=== PATIENT | male | born 1995 | race Caucasian/White ===

== ENCOUNTER → 2021-05-06 14:57 | Outpatient (BNVA) | payer BC, SELFPAY | PROVIDERS: PCP Hospitalist; Visit Provider Urology ==

== ENCOUNTER → 2021-08-18 11:05 | Outpatient (BNVA) | payer BC, SELFPAY | PROVIDERS: PCP Hospitalist; Visit Provider Urology | DX: Z30.2 Encounter for sterilization (principal); F41.8 Other specified anxiety disorders | CPT/HCPCS: 55250 ==

== ENCOUNTER → 2021-10-29 09:30 | Outpatient (BNVA) | payer BC, SELFPAY | PROVIDERS: PCP Hospitalist; Visit Provider Urology ==

== ENCOUNTER 2021-11-09 08:53 | Outpatient (REF) | payer BC, SELFPAY ==
[2021-11-09 09:13] LABS: MANUAL DIFF FLAG NO
[2021-11-09 09:16] LABS: Basophils Absolute Auto 0.1 X10*3/uL (0.0-0.2); Basophils Percent Auto 1.1 % (0-2); Eosinophils Absolute Auto 0.3 X10*3/uL (0.0-0.4); Eosinophils Percent Auto 7.6 % (0-4); Hematocrit 49.4 % (42.0-52.0); Hemoglobin 15.8 g/dl (14.0-18.0); Imm Gran Abs Auto 0.01 X10*3/uL (0.00-0.03); Imm Gran Pct Auto 0.2 % (0.0-0.4); Lymphocytes Absolute Auto 1.5 X10*3/uL (1.2-4.9); Lymphocytes Percent Auto 34.4 % (20-40); Mean Corpuscular Hemoglobin 26.8 pg (27.0-33.0); Mean Corpuscular Volume 83.9 fL (80.0-98.0); Monocytes Absolute Auto 0.8 X10*3/uL (0.1-1.2); Monocytes Percent Auto 18.1 % (2-11); Neutrophils Absolute Auto 1.7 x10*3/uL (2.0-8.3); Neutrophils Percent Auto 38.6 % (45-73); Platelet Count 210 X10*3/uL (160-400); Red Blood Count 5.89 X10*6/uL (4.60-5.80); Red Cell Distribution Width 13.3 % (11.0-16.0); White Blood Count 4.5 X10*3/uL (4.8-10.8)
[2021-11-09 09:37] LABS: Alanine Aminotransferase 26 U/L (0-40); Albumin Level 4.2 g/dL (3.5-5.0); Alkaline Phosphatase 64 U/L (39-117); Anion Gap 10 (12-20); Aspartate Amino Transferase 27 U/L (5-37); Bilirubin Total 0.3 mg/dL (0.0-1.0); Blood Urea Nitrogen 19 mg/dL (9-16); Calcium 9.7 mg/dL (8.4-10.2); Carbon Dioxide 32 mmol/L (22-29); Chloride 102 mmol/L (96-108); Estimated Glomerular Filt Rate > 60; Glucose Random 98 mg/dL (60-115); Potassium 4.5 mmol/L (3.3-5.1); Sodium 139 mmol/L (135-145)
== END 2021-11-09 08:54 | disposition home or self-care (01) ==
LOC: HO.LAB 08:53
PROVIDERS: PCP Hospitalist; Visit Provider Hospitalist
DX: Z00.00 Encounter for general adult medical examination without abnormal findings (principal); L53.9 Erythematous condition, unspecified; R59.0 Localized enlarged lymph nodes
CPT/HCPCS: 36415; 80053; 85025

== ENCOUNTER 2021-11-09 14:13 | Outpatient (REF) | payer BC, SELFPAY ==
--- NOTE | ~2021-11-09 | US_ITS ---
EXAMINATION: ULTRASOUND EXTREMITY NONVASCULAR CLINICAL INFORMATION: Left axillary lymphadenopathy COMPARISON: None TECHNIQUE: Grayscale and color imaging of the left axilla and chest wall using a linear transducer FINDINGS: There are multiple left axillary lymph nodes. Largest lymph nodes measure 2.4 x 1 x 2.4 cm and 2.6 x 1.3 x 1.8 cm. Larger lymph nodes demonstrate cortical thickening and slitlike hilum. There is preserved hilar flow. There is overlying edema of the subcutaneous soft tissues. US/US extremity nonvascular aleman IMPRESSION: Multiple left axillary lymph nodes. Largest lymph nodes are slightly enlarged and demonstrates cortical thickening and slitlike hilum. Management should be determined on a clinical basis.
== END 2021-11-09 14:14 | disposition home or self-care (01) ==
LOC: HO.HMGCX 14:13
PROVIDERS: PCP Hospitalist; Visit Provider Hospitalist
DX: R59.0 Localized enlarged lymph nodes (principal)
CPT/HCPCS: 76882

== ENCOUNTER 2022-04-12 08:46 | Outpatient (REF) | payer BC, SELFPAY ==
[2022-04-12 11:18] LABS: MANUAL DIFF FLAG NO
[2022-04-12 11:37] LABS: Basophils Absolute Auto 0.1 X10*3/uL (0.0-0.2); Eosinophils Absolute Auto 0.5 X10*3/uL (0.0-0.4); Eosinophils Percent Auto 8.4 % (0-4); Hematocrit 48.4 % (42.0-52.0); Hemoglobin 15.5 g/dl (14.0-18.0); Imm Gran Abs Auto 0.01 X10*3/uL (0.00-0.03); Imm Gran Pct Auto 0.2 % (0.0-0.4); Mean Corpuscular Hemoglobin 27.1 pg (27.0-33.0); Mean Corpuscular Volume 84.6 fL (80.0-98.0); Mean Platelet Volume 10.4 fL (9.4-12.4); Monocytes Absolute Auto 0.6 X10*3/uL (0.1-1.2); Monocytes Percent Auto 10.5 % (2-11); Neutrophils Absolute Auto 2.7 x10*3/uL (2.0-8.3); Neutrophils Percent Auto 45.9 % (45-73); Platelet Count 222 X10*3/uL (160-400); Red Blood Count 5.72 X10*6/uL (4.60-5.80); Red Cell Distribution Width 13.8 % (11.0-16.0); White Blood Count 5.8 X10*3/uL (4.8-10.8)
[2022-04-12 11:59] LABS: TSH reflex Free T4 1.52 uIU/mL (0.32-4.0)
[2022-04-12 12:01] LABS: Alanine Aminotransferase 25 U/L (0-40); Albumin Level 4.4 g/dL (3.5-5.0); Alkaline Phosphatase 67 U/L (39-117); Anion Gap 11 (12-20); Aspartate Amino Transferase 32 U/L (5-37); Bilirubin Total 0.7 mg/dL (0.0-1.0); Blood Urea Nitrogen 16 mg/dL (9-16); Calcium 9.7 mg/dL (8.4-10.2); Carbon Dioxide 29 mmol/L (22-29); Chloride 102 mmol/L (96-108); Cholesterol 139 mg/dL; Estimated Glomerular Filt Rate > 60; Glucose Fasting 105 mg/dL (60-99); HDL Cholesterol 41 mg/dL; LDL Cholesterol Calculated 81 mg/dl; Potassium 4.2 mmol/L (3.3-5.1); Sodium 138 mmol/L (135-145); Total Protein 7.2 g/dL (6.5-8.0); Triglycerides 85 mg/dL
[2022-04-12 12:20] LABS: Appearance Urine CLEAR; Color Urine YELLOW; Glucose Urine UA NEG (NEG); Leukocyte Esterase Urine NEG (NEG); Nitrite Urine NEG (NEG); PH 6.5 (5.0-8.0); Urine Blood NEG (NEG); Urine Ketones NEG (NEG); Urine Protein NEG (NEG-TRACE)
[2022-04-13 07:28] LABS: HBS Num1 0.82 mIU/mL (0-7.99); HBc Num1 0.08 S/CO (0.00-0.79); HIV AB/AG Nonreactive (Nonreactive); HIV Num 1 0.19 S/CO (0.00-0.99); Hepatitis B Core Antibody Nonreactive (Nonreactive); Hepatitis B Surface Antigen Negative (Negative); ~HepC Num1 0.05 S/CO (0.00-0.79); ~Hepatitis B Surface Antibody NONREACTIVE (Nonreactive); ~Hepatitis C Antibody Nonreactive (Nonreactive)
== END 2022-04-12 08:47 | disposition home or self-care (01) ==
LOC: HO.WFDLDS 08:46
PROVIDERS: Visit Provider Hospitalist
DX: Z00.00 Encounter for general adult medical examination without abnormal findings (principal); Z11.4 Encounter for screening for human immunodeficiency virus [HIV]; Z11.3 Encounter for screening for infections with a predominantly sexual mode of transmission; G47.8 Other sleep disorders; R79.89 Other specified abnormal findings of blood chemistry; F41.8 Other specified anxiety disorders
CPT/HCPCS: 36415; 80053; 80061; 81003; 84443; 85025; 86704; 86706; 86803; 87340; 87389

== ENCOUNTER 2022-05-31 11:42 | Outpatient (REF) | payer BC, SELFPAY ==
[2022-05-31 14:27] LABS: Appearance Urine Turbid; Color Urine Yellow; Glucose Urine UA Negative (Negative); Leukocyte Esterase Urine Moderate (2+) (Negative); Nitrite Urine Negative (Negative); Urine Blood Negative (Negative); Urine Ketones Negative (Negative); Urine Protein Negative (Neg-Trace)
[2022-05-31 15:00] LABS: Bacteria Urine None Seen (None Seen); Hyaline Casts Urine 0-2 /LPF (0-2); RBC Urine 0-2 /HPF (0-2); Squamous Epithelial Cell Urine 0-2 /HPF (0-2); UACC Culture Trigger YES; WBC Urine 21-50 /HPF (0-5)
== END 2022-05-31 11:43 | disposition home or self-care (01) ==
LOC: HO.WFDLDS 11:42
PROVIDERS: Visit Provider Hospitalist
DX: R82.90 Unspecified abnormal findings in urine (principal)
CPT/HCPCS: 81001

== ENCOUNTER 2022-06-01 14:00 | Outpatient (REF) | payer BC, SELFPAY ==
[2022-06-01 14:15] LABS: Appearance Urine Clear; Color Urine Yellow; Glucose Urine UA Negative (Negative); Leukocyte Esterase Urine Moderate (2+) (Negative); Nitrite Urine Negative (Negative); Specific Gravity - Urine 1.015 (1.005-1.025); Urine Blood Negative (Negative); Urine Ketones Negative (Negative); Urine Protein Negative (Neg-Trace)
[2022-06-01 14:21] LABS: Bacteria Urine None Seen (None Seen); Hyaline Casts Urine 0-2 /LPF (0-2); RBC Urine 0-2 /HPF (0-2); Squamous Epithelial Cell Urine 0-2 /HPF (0-2); WBC Urine 21-50 /HPF (0-5)
== END 2022-06-01 14:01 | disposition home or self-care (01) ==
LOC: HO.LNP 14:00
PROVIDERS: Visit Provider Hospitalist
DX: R82.90 Unspecified abnormal findings in urine (principal)
CPT/HCPCS: 81001

== ENCOUNTER 2022-06-09 13:11 | Outpatient (REF) | payer BC, SELFPAY ==
[2022-06-09 13:42] LABS: Appearance Urine Clear; Color Urine Yellow; Glucose Urine UA Negative (Negative); Leukocyte Esterase Urine Large (3+) (Negative); Nitrite Urine Negative (Negative); Urine Blood Negative (Negative); Urine Ketones Negative (Negative); Urine Protein Negative (Neg-Trace)
[2022-06-09 13:44] LABS: Bacteria Urine None Seen (None Seen); Hyaline Casts Urine 0-2 /LPF (0-2); RBC Urine 0-2 /HPF (0-2); Squamous Epithelial Cell Urine 0-2 /HPF (0-2); UACC Culture Trigger YES; WBC Urine >50 /HPF (0-5)
== END 2022-06-09 13:12 | disposition home or self-care (01) ==
LOC: HO.LNP 13:11
PROVIDERS: Visit Provider Hospitalist
DX: Z13.89 Encounter for screening for other disorder (principal)
CPT/HCPCS: 81001; 87086

== ENCOUNTER 2022-06-15 11:56 | Outpatient (REF) | payer BC, SELFPAY ==
[2022-06-16 06:28] LABS: CT PCR NOT DETECTED (Not Detect.); NG PCR DETECTED (Not Detect.)
== END 2022-06-15 11:57 | disposition home or self-care (01) ==
LOC: HO.WFDLDS 11:56
PROVIDERS: Visit Provider Hospitalist
DX: Z00.00 Encounter for general adult medical examination without abnormal findings (principal); R82.90 Unspecified abnormal findings in urine; Z11.3 Encounter for screening for infections with a predominantly sexual mode of transmission
CPT/HCPCS: 87086; 87491; 87591

== ENCOUNTER 2022-06-15 12:05 | Outpatient (REF) | payer BC, SELFPAY | END 2022-06-15 12:06 | disposition home or self-care (01) | LOC: HO.LAB 12:05 | PROVIDERS: Visit Provider Hospitalist | DX: Z13.89 Encounter for screening for other disorder (principal) ==

== ENCOUNTER 2022-07-07 08:53 | Outpatient (REF) | payer BC, SELFPAY | END 2022-07-07 08:54 | disposition home or self-care (01) | LOC: HO.LAB 08:53 | PROVIDERS: Visit Provider Hospitalist | DX: Z13.89 Encounter for screening for other disorder (principal) ==

== ENCOUNTER 2022-07-07 08:57 | Outpatient (REF) | payer BC, SELFPAY ==
[2022-07-07 15:44] LABS: CT PCR NOT DETECTED (Not Detect.); NG PCR NOT DETECTED (Not Detect.)
== END 2022-07-07 08:58 | disposition home or self-care (01) ==
LOC: HO.WFDLDS 08:57
PROVIDERS: Visit Provider Hospitalist
DX: Z11.3 Encounter for screening for infections with a predominantly sexual mode of transmission (principal)
CPT/HCPCS: 87491; 87591

== ENCOUNTER 2022-10-31 16:52 | Outpatient (REF) | payer BC, SELFPAY ==
[2022-11-01 05:44] LABS: CT PCR NOT DETECTED (Not Detect.); NG PCR NOT DETECTED (Not Detect.)
== END 2022-10-31 16:53 | disposition home or self-care (01) ==
LOC: HO.LNP 16:52
PROVIDERS: Visit Provider Physician Assistant
DX: R30.0 Dysuria (principal); N39.0 Urinary tract infection, site not specified
CPT/HCPCS: 0353U

== ENCOUNTER 2022-11-15 14:33 | Outpatient (REF) | payer BC, SELFPAY ==
[2022-11-15 16:19] LABS: Influenza A PCR NEGATIVE (Negative); Influenza B PCR NEGATIVE (Negative); Resp Syncy Virus RNA Qual PCR NEGATIVE (Negative); SARS COV2 PCR INHOUSE NEGATIVE (Negative)
== END 2022-11-15 14:34 | disposition home or self-care (01) ==
LOC: HO.LNP 14:33
PROVIDERS: Visit Provider Emergency Medicine
DX: Z20.822 Contact with and (suspected) exposure to COVID-19 (principal); R68.89 Other general symptoms and signs
CPT/HCPCS: 0241U

== ENCOUNTER 2023-05-26 08:17 | Outpatient (AMB) | payer BC, SELFPAY ==
--- NOTE | 2023-05-26 08:56 | MHC.OFFWIV ---
Intake Vital Signs 05/26/23 09:00 Height 5 ft 11 in Weight 244 lb BMI 34.0 BP 130/80 Blood Pressure Location Rt brachial Position Sitting Pulse 80 Pulse Source Pulse Oximeter Pulse Oximetry (%) 98 Oxygen Delivery Method Room Air Intake Visit Reasons: EP ?UTI Intake Note: Patient here for discomfort which started about 2 days ago, he states he noticed some discharge yesterday which he is unsure if its from a uti. he did recently start dating someone. Patient Tobacco Use Status: Never used Tobacco Allergies codeine [CODEINE] Allergy (Mild, Verified 05/26/23 09:11) HIVES DIFFICULT BREATHING Medication List - Last Reconciled 05/26/23 by Donny Camargo MD adalimumab (Humira(CF) Pen) 40 mg subcut Q2W albuterol sulfate 90 mcg/actuation (ProAir HFA) 2 puffs inhalation Q6H PRN 1 month albuterol sulfate 2.5 mg (3 mL) inhalation Q6H PRN azithromycin (Zithromax) 1,000 mg (4 x 250 mg) PO ONCE 1 day ciprofloxacin HCl 500 mg PO ONCE fluticasone furoate 100 mcg/actuation (Arnuity Ellipta) 1 inh PO DAILY inhalational spacing device (Aerochamber MV spacer) As directed loratadine (Claritin) 10 mg PO DAILY nebulizer accessories ([employer] Choice Nebulizer Kit-Adult) inhaled respiratory treatments as needed nebulizers (Altera Nebulizer System) As directed salmeterol (Serevent Diskus) 1 inh inhalation Q12H sertraline (Zoloft) 25 mg PO DAILY Do you need a note to return to daycare/school/sports/work: Yes HPI EP ?UTI HPI Details 28-year-old male presents to the office for a sick visit. Patient is having discharge from the penis for the last 2 days. He has been in a new relationship. Sexually active with single partner. Heterosexual. Not using protection [facility] Medical History Anxiety with depression Asthma, mild intermittent, poorly controlled Gonorrhea Surgical History History of drainage of abscess History of vasectomy Family History Father Hypertension Mother Gluten free diet Maternal Grandfather Myocardial infarction Other Mental health disorder Substance use disorder Social History Housing: House Alcohol intake: current Alcohol intake frequency: holidays/special occasions only Alcohol type: beer Patient Tobacco Use Status: Never used Tobacco e-Cigarette/Vaping Use: Never Used Second Hand Smoke Exposure: No service: No Current occupational status: employed Current occupational exposures/hazards: No Cognitive needs: No Hearing needs: No Vision needs: No Physical Exam Vital Signs: Last Vital Signs Pulse 80 05/26/23 09:00 BP 130/80 05/26/23 09:00 Pulse Ox 98 05/26/23 09:00 Oxygen Delivery Method Room Air 05/26/23 09:00 BMI result Body Mass Index 34.0 General: Yes bladder normal to inspection and Yes no CVA tenderness Back/Spine/Pelvis Back: no CVA tenderness Results AMB Urinalysis, Automated UA Leukoctes 0 Poppy/uL Last Edit by ELOISE Gomes on 05/26/23 08:58 UA Nitrite Negative Last Edit by Julia Calderon [facility] on 05/26/23 08:58 UA Urobilinogen 0.2 mg/dL Last Edit by Julia Calderon [facility] on 05/26/23 08:58 UA Protein 0 mg/dL Last Edit by Julia Calderon [facility] on 05/26/23 08:58 UA pH 6.5 Last Edit by Julia Calderon [facility] on 05/26/23 08:58 UA Blood 0 Deirc/uL Last Edit by Julia Calderon [facility] on 05/26/23 08:58 UA Specific [place] 1.015 Last Edit by Julia Calderon [facility] on 05/26/23 08:58 UA Ketone Negative Last Edit by Julia Calderon [facility] on 05/26/23 08:58 UA Bilirubin 0 mg/dL Last Edit by Julia Calderon [facility] on 05/26/23 08:58 UA Glucose 0 mg/dL Last Edit by Julia Calderon [facility] on 05/26/23 08:58 Results Reviewed Results Reviewed: Laboratory Last Values Urine pH (Auto) 6.5 05/26/23 08:56 Specific [place] (Auto) 1.015 05/26/23 08:56 Urine Protein (Auto) 0 mg/dL 05/26/23 08:56 Glucose (UA)(Auto) 0 mg/dL 05/26/23 08:56 Urine Ketones (Auto) Negative 05/26/23 08:56 Urine Blood (Auto) 0 Deric/uL 05/26/23 08:56 Urine Nitrite (Auto) Negative 05/26/23 08:56 Urine Bilirubin (Auto) 0 mg/dL 05/26/23 08:56 Urine Urobilinogen (Auto) 0.2 mg/dL 05/26/23 08:56 Leukocyte Esterase (Auto) 0 Poppy/uL 05/26/23 08:56 Assessment & Plan Assessment & Plan (1) Urethritis: Code(s): N34.2 - Other urethritis Plan: Empiric treatment for chlamydia and gonorrhea. Testing has been done. Will call with results. Orders: Orders AMB Urinalysis Automated Today Z13.9 - Encounter for screening, unspecified RONAN Marinelli Medications: New azithromycin (Zithromax) 1,000 mg (4 x 250 mg) PO ONCE 1 day 4 tabs 0RF Donny Camargo MD ciprofloxacin HCl 500 mg PO ONCE 1 tab 1RF Donny Camargo MD Coding Level of Care Code Est Pt Level 4 (10303) Diagnoses Urethritis N34.2
[2023-05-26 09:00] VITALS: BP 130/80; PULSE 80; O2SAT 98; BMI 34.0
== END 2023-05-26 09:36 | disposition home or self-care (01) ==
PROVIDERS: PCP Hospitalist; Visit Provider Internal Medicine
DX: N34.2 Other urethritis (principal)
CPT/HCPCS: 81003; 99214

== ENCOUNTER 2023-05-26 15:53 | Outpatient (REF) | payer BC, SELFPAY ==
[2023-05-27 04:46] LABS: CT PCR NOT DETECTED (Not Detect.); NG PCR NOT DETECTED (Not Detect.)
== END 2023-05-26 15:54 | disposition home or self-care (01) ==
LOC: HO.LNP 15:53
PROVIDERS: Visit Provider Internal Medicine
DX: N34.2 Other urethritis (principal)
CPT/HCPCS: 0353U

== ENCOUNTER 2023-07-26 12:12 | Outpatient (AMB) | payer BC, SELFPAY ==
[2023-07-26 12:18] VITALS: BP 120/70; PULSE 76; RESP 13; TEMP 36.6; O2SAT 99; BMI 33.7
--- NOTE | 2023-07-26 12:18 | A.OFFPC_ITS ---
Vital Signs 07/26/23 12:18 Height 5 ft 11 in Weight 241 lb 6 oz BMI 33.7 BP 120/70 Blood Pressure Location Lt brachial Position Sitting Respiration 13 Pulse 76 Pulse Source Pulse Oximeter Temp 97.9 F Temp Source Temporal Artery Scan Pulse Oximetry (%) 99 Oxygen Delivery Method Room Air Intake Visit Reasons: est care from [facility] Intake Note: Patient states that he was eating a rotisserie chicken he felt something sharp go down maybe like a bone. Patient states that he can feel a weird sensation when eating certain foods. Patient states that it feels like there is something stuck in middle of throat and does have history of GERD. Patient would like to makes sure that his GERD ismnt coming back due to it going away once he did a weight transition. Patient would like a refill on Arnuity Inhaler and Serevent Inhalers. Manager Domestic Required: No Accompanied by: Self / Same As Patient Allergies codeine [CODEINE] Allergy (Mild, Verified 07/26/23 12:44) HIVES DIFFICULT BREATHING Medication List - Last Reconciled 07/26/23 by Lorena Aguiar CNP adalimumab (Humira(CF) Pen) 40 mg subcut Q2W albuterol sulfate 90 mcg/actuation (ProAir HFA) 2 puffs inhalation Q6H PRN 1 month albuterol sulfate 2.5 mg (3 mL) inhalation Q6H PRN azithromycin (Zithromax) 1,000 mg (4 x 250 mg) PO ONCE 1 day ciprofloxacin HCl 500 mg PO ONCE fluticasone furoate 100 mcg/actuation (Arnuity Ellipta) 1 inh PO DAILY inhalational spacing device (Aerochamber MV spacer) As directed loratadine (Claritin) 10 mg PO DAILY nebulizer accessories ([employer] Choice Nebulizer Kit-Adult) inhaled respiratory treatments as needed nebulizers (Altera Nebulizer System) As directed salmeterol (Serevent Diskus) 1 inh inhalation Q12H sertraline (Zoloft) 25 mg PO DAILY Tobacco use date assessed: 01/18/23 Dental Screening Dental Screen Date: 07/26/23 Did you have a dental visit in the last 12 months?: Yes Did you have a dental problem in the last 6 months where you did not have access to dental care?: No Was dental information given to patient?: Patient has dentist HPI HPI Comments History of Present Illness Details 28-year-old male presents for transfer o [facility]. His former PCP was TODD who is no longer with the practice. His last office visit with his PCP was in December 2022. His most recent blood work was in April 2022. His last complete physical exam was in December 2022. He has history of anxiety, depression, asthma, seasonal allergies He admits to taking his medications as prescribed except for Zoloft which he has not been taking for the past 3 months. He reports feeling as though he has something stuck in the middle of his throat with swallowing at times. His symptoms have been ongoing for over a month, after he ate some rotisserie chicken and immediately felt something sharp like a bone going down my throat. He states that he was evaluated at [facility] and x-ray was normal. He reports h/o GERD and states he has not experienced symptoms since he lost 120 lb 4 years ago. He denies burning sensation to his epigastrum or throat. He notes that his anxiety and depression symptoms are somewhat controlled. He states that he stopped taking Zoloft due to concern of adverse reaction of drowsiness. 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 He notes that he has been lifting weights and doing cardio exercises at the gym 6 times weekly. He states that his asthma has been controlled on Arnuity Ellipta and albuterol inhalers, and albuterol updraft. He ran out of Salmeterol inhaler and has not be using for several months. He denies acute symptoms at this time. [facility] Medical History Gonorrhea Anxiety with depression Asthma, mild intermittent, poorly controlled Surgical History History of vasectomy History of drainage of abscess Family History Father Hypertension Mother Gluten free diet Maternal Grandfather Myocardial infarction Other Mental health disorder Substance use disorder Social History Housing: House Alcohol intake: current Alcohol intake frequency: holidays/special occasions only Alcohol type: beer Patient Tobacco Use Status: Never used Tobacco e-Cigarette/Vaping Use: Never Used Second Hand Smoke Exposure: No service: No Current occupational status: employed 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 1. Little interest or pleasure in doing things: more than half the days 2. Feeling down, depressed, or hopeless: several days 3. Trouble falling or staying asleep, or sleeping too much: several days 4. Feeling tired or having little energy: nearly every day 5. Poor appetite or overeating: several days 6. Feeling bad about yourself - or that you are a failure or have let yourself or your family down: several days 7. Trouble concentrating on things, such as reading the newspaper or watching te levision: several days 8. Moving or speaking so slowly that other people could have noticed. Or the opposite - being so fidgety or restless that you have been moving around a lot more than usual: not at all 9. Thoughts that you would be better off or of hurting yourself in some way: not at all Total score: 10 Depression Screening Interpretation: Positive Depression Screening Follow-up: Existing condition and Declines treatment Depression Screening Done: Yes Source: Developed by Drs. Saran Jean, Sarah Chapa, Tristen Blanton and colleagues, with an educational francisco javier from [employer]. Thrive Questionnaire Date Thrive assessed: 04/12/22 AUDIT C Alcohol Use Questionnaire (AUDIT-C) 1. How often do you have a drink containing alcohol?: 2-4 times a month 2. How many drinks containing alcohol do you have on a typical day when you are drinking?: 1 or 2 3. How often do you have six or more drinks on one occasion?: Never Total Score: 2 AWILDA-7 AMB Questionnaire AWILDA-7 Date AWILDA - 7 assessed: 07/26/23 Feeling nervous, anxious, or on edge: 3 = Nearly every day Not being able to stop or control worryin = More than half the days Worrying too much about different things: 2 = More than half the days Trouble relaxin = More than half the days Being so restless that it is hard to sit still: 1 = Several days Becoming easily annoyed or irritable: 2 = More than half the days Feeling afraid as if something awful might happen: 2 = More than half the days Total AWILDA-7 score (0-4 normal; 5-9 mild; 10-14 moderate; 15-21 severe): 14 Source: Developed by Drs. Saran Jean, Sarah Chapa, Tristen Blanton and colleagues, with an educational francisco javier from [employer]. ACT Questionnaire In the past 4 weeks, how much of the time did your asthma keep you from getting as much done at work, school or at home?: A little of the time During the past 4 weeks, how often have you had shortness of breath?: 1-2 times a week During the past 4 weeks, how often did your asthma symptoms wake you up at night or earlier than usual in the morning?: Once or twice per week During the past 4 weeks, how often have you had to use your rescue inhaler or nebulizer medication?: Once a week or less How would you rate your asthma control during the past 4 weeks?: Well controlled Score: 20 Review of Systems Const Details: Const Denies chills, Denies fatigue, Denies fever(s), Denies headache(s) and Denies weakness ENT Denies dizziness and Denies headache(s) Card Denies chest pain, Denies lightheadedness, Denies dyspnea and Denies other (Palpitations) Resp Denies cough, Denies dyspnea, Denies wheezing and Denies other ( shortness of breath) GI Denies abdominal pain, Denies melena, Denies hematochezia, Denies change in bowel habits, Denies dyspepsia and Denies nausea Denies hematuria and Denies dysuria Musc Denies abnormal gait, Denies myalgias, Denies arthralgias, Denies numbness and Denies tingling Skin/Breast Denies rash, Denies unusual bruising and Denies wounds Neuro Denies abnormal gait, Denies dizziness, Denies headache(s), Denies memory loss, Denies numbness, Denies Sensory deficit (Neuro), Denies tingling and Denies weakness Psych Denies anxiety, Denies depression, Denies memory loss Endo Denies cold intolerance, Denies fatigue, Denies heat intolerance, Denies polydipsia and Denies polyuria Aller/Immun Denies wheezing Physical exam (Primary Care) Vital Signs: Last Vital Signs Temp 97.9 F 07/26/23 12:18 Pulse 76 07/26/23 12:18 Resp 13 07/26/23 12:18 BP 120/70 07/26/23 12:18 Pulse Ox 99 07/26/23 12:18 Oxygen Delivery Method Room Air 07/26/23 12:18 BMI result Body Mass Index 33.7 Tobacco/Smoking Status: Tobacco use Status Tobacco use date assessed 01/18/23 07/26/23 12:32 Patient Tobacco Use Status Never used Tobacco 07/26/23 12:32 e-Cigarette/Vaping Use Never Used 07/26/23 12:32 PHQ-9: PHQ-9 Score PHQ-9: Total score 07/26/23 12:42 Depression Screening Interpretation: Positive Depression Screening Follow-up: Existing condition and Declines treatment Thrive Assessment: Date of Thrive Assessment Date Thrive assessed 04/12/22 07/26/23 12:32 Const Other: General: no acute distress and well developed Nutritional Appearance: well nourished Orientation/consciousness: patient oriented x3 HENMT Head: Yes normocephalic and Yes atraumatic Eyes General: appearance normal, both eyes and all related structures Pupils: Equal, round and reactive pupils present EOM: EOMs intact bilaterally Resp Effort & Inspection: normal respiratory effort Auscultation: clear to auscultation bilaterally Cardio Rate: regular rate Rhythm: regular rhythm Heart sounds: S1 normal heart sound present, S2 normal heart sound present, no gallops, no murmurs and no rubs GI Palpation (GI): No Abdominal aortic bruit present, Soft to palpation, nontender, No hepatosplenomegaly present and No Rebound tenderness present Auscultation: normal bowel sounds General: Yes no CVA tenderness Back/Spine/Pelvis Back: no CVA tenderness Cervical Spine: cervical ROM normal and No Cervical spine tenderness Thoracic/Lumbar Spine: thoraco-lumbar ROM normal, No pain with thoraco-lumbar ROM, No thoracic spinal tenderness and No lumbar spinal tenderness Extrem General: Yes normal to inspection, No edema and No calf tenderness Skin General: warm and dry. Normal skin color. Normal skin turgor Lesions: no lesions Rashes: no rashes Trauma: no lacerations or abrasions Wounds: no wounds Nails: normal Neuro General: patient oriented x3, gait normal and no focal neuro deficit Cranial nerves: Yes Equal, round and reactive pupils present Cognition (Neuro): normal cognition Gait exam (Neuro): Normal gait present Sensory Exam: No Sensory deficit (Neuro) Psych Appearance: grossly normal Affect: normal affect Attitude: cooperative Thought process: Normal thought process present Assessment and Plan Assessment & Plan (1) Anxiety with depression: Code(s): F41.8 - Other specified anxiety disorders Plan: He notes that he stop taking Zoloft 3 months ago due to concern for a adverse reaction of drowsiness that may interfere with his job. He has been exercising at the gym 6 days a week and he has symptoms are somewhat controlled. Declines medication treatment at this time. He plans on continuing routine exercise PHQ-9 and AWILDA-7 scores revealed moderate depression and anxiety Routine exercise encouraged Return in 1 month for complete physical exam Follow-up with worsening or new symptoms. May inform his PCP if he changes his mind on medication treatment Verbalized understanding and agreed with treatment plan. (2) Asthma, mild intermittent, poorly controlled: Code(s): J45.20 - Mild intermittent asthma, uncomplicated Plan: Controlled Continue to use albuterol and Arnuity Ellipta inhalers and albuterol updraft as prescribed Return with symptoms or concerns Verbalized understanding and agreed with treatment plan. (3) Dysphagia: Code(s): R13.10 - Dysphagia, unspecified Qualifiers: Dysphagia type: esophageal phase Qualified Code(s): R13.19 - Other dysphagia Plan: Reports swallowing difficulty intermittently for over a month. His symptoms started after he ate some rotisserie chicken. He was evaluated at an urgent care and negative x-ray was negative. He reports history of GERD. Denies burning sensation to his epigastrium or esophagus. Likely GERD. Will trial omeprazole; advised to take as prescribed Follow-up with worsening or new symptoms. Would referred to GI Verbalized understanding and agreed with treatment plan. (4) Laboratory tests ordered as part of a complete physical exam (CPE): Code(s): Z00.00 - Encounter for general adult medical examination without abnormal findings Plan: Fasting labs ordered as part of a complete physical exam. Advised to fast for at least 10 hours before getting labs drawn. May drink water Verbalized understanding and agreed with treatment plan. Orders: Orders Lipid Panel Today Z00.00 - Encounter for general adult medical examination without abnormal findings Complete Blood Count Auto Diff Today Z00.00 - Encounter for general adult medical examination without abnormal findings Comprehensive [place]. Panel Fast Today Z00.00 - Encounter for general adult medical examination without abnormal findings TSH reflex Free T4 Today Z00.00 - Encounter for general adult medical examination without abnormal findings Medications: New omeprazole 20 mg PO DAILY 30 days 30 caps 3RF Refilled fluticasone furoate 100 mcg/actuation (Arnuity Ellipta) 1 inh PO DAILY 30 ea 0RF J45.20 - Mild intermittent asthma, uncomplicated Discontinued azithromycin (Zithromax) Discontinued Reason: Doctor's Order 1,000 mg (4 x 250 mg) PO ONCE 1 day 4 tabs 0RF ciprofloxacin HCl Discontinued Reason: Doctor's Order 500 mg PO ONCE 1 tab 1RF Coding Level of Care Code Est Pt Level 4 (65359) Diagnoses Anxiety with depression F41.8 Asthma, mild intermittent, poorly controlled J45.20 Esophageal dysphagia R13.19 Dysphagia type: esophageal phase Laboratory tests ordered as part of a complete physical exam (CPE) Z00.00
== END 2023-07-26 13:18 | disposition home or self-care (01) ==
PROVIDERS: Visit Provider Nurse Practitioner Family
DX: F41.8 Other specified anxiety disorders (principal); J45.20 Mild intermittent asthma, uncomplicated; R13.19 Other dysphagia; Z00.00 Encounter for general adult medical examination without abnormal findings
CPT/HCPCS: 99214

== ENCOUNTER 2023-08-23 12:03 | Outpatient (AMB) | payer BC, SELFPAY ==
[2023-08-23 12:12] VITALS: BP 120/78; PULSE 85; RESP 12; O2SAT 97; BMI 33.7
--- NOTE | 2023-08-23 12:12 | MHC.PC.OV ---
Vital Signs 08/23/23 12:12 Height 5 ft 11 in Weight 241 lb 6 oz BMI 33.7 BP 120/78 Blood Pressure Location Lt brachial Position Sitting Respiration 12 Pulse 85 Pulse Source Pulse Oximeter Pulse Oximetry (%) 97 Oxygen Delivery Method Room Air Intake Visit Reasons: 1 mos CPE, labs review Intake Note: Patient is here for his physical today, he forgot to do his labs, will do it next week. Patient is requesting referral to [facility] at [address] [place] [address], [address], [facility] [address]. Allergies codeine [CODEINE] Allergy (Mild, Verified 08/23/23 12:46) HIVES DIFFICULT BREATHING Medication List - Last Reconciled 08/23/23 by Lorena Aguiar CNP adalimumab (Humira(CF) Pen) 40 mg subcut Q2W albuterol sulfate 90 mcg/actuation (ProAir HFA) 2 puffs inhalation Q6H PRN 1 month albuterol sulfate 2.5 mg (3 mL) inhalation Q6H PRN fluticasone furoate 100 mcg/actuation (Arnuity Ellipta) 1 inh PO DAILY inhalational spacing device (Aerochamber MV spacer) As directed loratadine (Claritin) 10 mg PO DAILY nebulizer accessories (Yipit Choice Nebulizer Kit-Adult) inhaled respiratory treatments as needed nebulizers (Altera Nebulizer System) As directed omeprazole 20 mg PO DAILY 30 days Tobacco use date assessed: 08/23/23 HPI HPI Comments History of Present Illness Details 28-year-old male presents for an extended physical exam He has history of asthma, anxiety, and depression He admits to taking his asthma treatment as prescribed He has been exercising with controlled anxiety and depression symptoms He forgot to get his routine blood work done He had offers no complaints and denies acute symptoms at this time He states that he has been taking Prilosec with significant improvement of his dysphagia He requests a referral to [facility]. He notes he was informed he needed a new referral. He has been receiving Humira, for generalized psoriasis, every 2 weeks for the past several years He notes that he had vasectomy 2 years ago. However, he has been taking of having a child and wants to know if the procedure can not be reversed He states that he is sexually active, in a monogamous relationship, and no concerns for STD. He requests STD screening COUNT INCLUDES [facility] Medical History (Updated 08/23/23 @ 13:14 by Lorena Aguiar CNP) Gonorrhea Anxiety with depression Asthma, mild intermittent, poorly controlled Surgical History (Updated 08/23/23 @ 13:10 by Lorena Aguiar CNP) History of vasectomy History of drainage of abscess Family History Father Hypertension Mother Gluten free diet Maternal Grandfather Myocardial infarction Other Mental health disorder Substance use disorder Housing: House Alcohol intake: current Alcohol intake frequency: holidays/special occasions only Alcohol type: beer Patient Tobacco Use Status: Never used Tobacco e-Cigarette/Vaping Use: Never Used Second Hand Smoke Exposure: No service: No Current occupational status: employed 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 1. Little interest or pleasure in doing things: not at all 2. Feeling down, depressed, or hopeless: several days 3. Trouble falling or staying asleep, or sleeping too much: not at all 4. Feeling tired or having little energy: several days 5. Poor appetite or overeating: several days 6. Feeling bad about yourself - or that you are a failure or have let yourself or your family down: not at all 7. Trouble concentrating on things, such as reading the newspaper or watching television: not at all 8. Moving or speaking so slowly that other people could have noticed. Or the opposite - being so fidgety or restless that you have been moving around a lot more than usual: not at all 9. Thoughts that you would be better off or of hurting yourself in some way: not at all Total score: 3 Depression Screening Interpretation: Negative Depression Screening Done: Yes Source: Developed by Drs. Saran Jean, Sarah Chapa, Tristen Blanton and colleagues, with an educational francisco javier from [employer]. Thrive Questionnaire Date Thrive assessed: 04/12/22 AWILDA-7 AMB Questionnaire AWILDA-7 Date AWILDA - 7 assessed: 08/23/23 Feeling nervous, anxious, or on edge: 1 = Several days Not being able to stop or control worryin = Several days Worrying too much about different things: 1 = Several days Trouble relaxin = Several days Being so restless that it is hard to sit still: 0 = Not at all Becoming easily annoyed or irritable: 1 = Several days Feeling afraid as if something awful might happen: 0 = Not at all Total AWILDA-7 score (0-4 normal; 5-9 mild; 10-14 moderate; 15-21 severe): 5 Source: Developed by Drs. Saran Jean, Sarah Chapa, Tristen Blanton and colleagues, with an educational francisco javier from [employer]. Review of Systems Const Details: Denies chills, Denies fatigue, Denies fever(s), Denies headache(s) and Denies weakness HEENT Denies change in vision, Denies dizziness, Denies headache(s), Denies hearing loss, Denies nasal congestion, Denies sinus pain, Denies sinus pressure and Denies sore throat Card Denies chest pain, Denies lightheadedness, Denies dyspnea and Denies other (palpitations) Resp Denies cough, Denies dyspnea and Denies wheezing GI Denies abdominal pain, Denies melena, Denies hematochezia, Denies change in bowel habits, Denies dyspepsia and Denies nausea Denies hematuria and Denies dysuria Musc Denies abnormal gait, Denies myalgias, Denies arthralgias, Denies numbness and Denies tingling Skin/Breast Denies rash, Denies unusual bruising and Denies wounds Neuro Denies abnormal gait, Denies dizziness, Denies headache(s), Denies memory loss, Denies numbness, Denies Sensory deficit (Neuro), Denies tingling and Denies weakness Psych Denies anxiety, Denies depression and Denies memory loss Endo Denies cold intolerance, Denies fatigue, Denies heat intolerance, Denies polydipsia and Denies polyuria Poncho/Lymph Denies easy bleeding and Denies easy bruising Aller/Immun Denies wheezing Physical exam (Primary Care) Vital Signs: Last Vital Signs Pulse 85 08/23/23 12:12 Resp 12 08/23/23 12:12 BP 120/78 08/23/23 12:12 Pulse Ox 97 08/23/23 12:12 Oxygen Delivery Method Room Air 08/23/23 12:12 BMI result Body Mass Index 33.7 Tobacco/Smoking Status: Tobacco use Status Tobacco use date assessed 08/23/23 08/23/23 12:18 Patient Tobacco Use Status Never used Tobacco 08/23/23 12:14 e-Cigarette/Vaping Use Never Used 08/23/23 12:14 PHQ-9: PHQ-9 Score PHQ-9: Total score 3 08/23/23 12:25 Depression Screening Interpretation: Negative Thrive Assessment: Date of Thrive Assessment Date Thrive assessed 04/12/22 08/23/23 12:14 Const Other: General: no acute distress, well developed, alert and awake Nutritional Appearance: well nourished Orientation/consciousness: patient oriented x3 HENMT Head: Yes normocephalic and Yes atraumatic Ears: hearing grossly normal bilaterally and TM's normal bilaterally General nose exam: Normal external nose present and Normal nares present Mouth: Normal oral and palatal mucosa present and moist mucous membranes Teeth and gingiva: dentition normal Throat: Yes oropharynx normal Eyes Pupils: Equal, round and reactive pupils present and Pupil accommodation reflex normal EOM: EOMs intact bilaterally Neck Neck: Yes normal visual inspection, Yes no lymphadenopathy and Yes trachea midline Thyroid: Thyroid normal Carotids: no bruits Lymphatic: no lymphadenopathy noted Chest Chest palpation & inspection: normal inspection of the chest Resp Effort & Inspection: normal respiratory effort Auscultation: clear to auscultation bilaterally Cardio Rate: regular rate Rhythm: regular rhythm Heart sounds: S1 normal heart sound present, S2 normal heart sound present, no gallops, no murmurs and no rubs Bruits: no abdominal aortic bruits and no carotid bruits GI Palpation (GI): No Abdominal aortic bruit present, Soft to palpation, nontender, No hepatosplenomegaly present and No Rebound tenderness present Auscultation: normal bowel sounds General: Yes no CVA tenderness Back/Spine/Pelvis Back: no CVA tenderness Cervical Spine: cervical ROM normal and No Cervical spine tenderness Thoracic/Lumbar Spine: thoraco-lumbar ROM normal, No pain with thoraco-lumbar ROM, No thoracic spinal tenderness and No lumbar spinal tenderness Skin General: warm and dry. Normal skin color. Normal skin turgor Lesions: no lesions Rashes: no rashes Trauma: no lacerations or abrasions Wounds: no wounds Nails: normal Neuro General: patient oriented x3, gait normal and CN's II-XI intact bilaterally Cranial nerves: Yes Equal, round and reactive pupils present Cognition (Neuro): normal cognition Gait exam (Neuro): Normal gait present Motor exam (neuro): 5/5 motor strength present throughout Sensory Exam: No Sensory deficit (Neuro) Deep tendon reflexes (DTR's): Right patellar reflex intensity grade: 2+ and Left patellar reflex intensity grade: 2+ Extrem General: Yes normal to inspection, No edema and No calf tenderness Psych Appearance: grossly normal Affect: normal affect Attitude: cooperative Thought process: Normal thought process present Assessment and Plan Assessment & Plan (1) Normal physical examination, routine: Code(s): Z00.00 - Encounter for general adult medical examination without abnormal findings Plan: No significant physical restrictions or limitations noted Advised to get routine fasting blood work done and schedule a telehealth visit for labs review Continue current treatment regimen Return with symptoms or concerns Verbalized understanding and agreed with plan (2) Psoriasis: Code(s): L40.9 - Psoriasis, unspecified Plan: Requests a referral to [facility]. He notes he was informed he needed a new referral. He has been receiving Humira, for generalized psoriasis, every 2 weeks for the past several years Normal skin exam Referred to [facility] (3) History of vasectomy: Code(s): Z98.52 - Vasectomy status Plan: He notes that he had vasectomy 2 years ago. However, he has been taking of having a child and wants to know if the procedure can not be reversed Ref[place]. Alejandro, [facility] [place] (4) Screen for STD (sexually transmitted disease): Code(s): Z11.3 - Encounter for screening for infections with a predominantly sexual mode of transmission Plan: He states that he is sexually active, in a monogamous relationship, and no concerns for STD. He requests STD screening Labs ordered for STD screening Orders: Orders HIV Ab/Ag Today Z11.3 - Encounter for screening for infections with a predominantly sexual mode of transmission Syphilis Screen Today Z11.3 - Encounter for screening for infections with a predominantly sexual mode of transmission Hepatitis B,C Profile Today Z11.3 - Encounter for screening for infections with a predominantly sexual mode of transmission CT NG by PCR Today Z11.3 - Encounter for screening for infections with a predominantly sexual mode of transmission Referrals Dermatology Referral L40.9 - Psoriasis, unspecified Urology Referral Z98.52 - Vasectomy status Coding Level of Care Code Est Pt Prev Care 18-39y(02302) Diagnoses Normal physical examination, routine Z00.00 Psoriasis L40.9 History of vasectomy Z98.52 Screen for STD (sexually transmitted disease) Z11.3
== END 2023-08-23 13:07 | disposition home or self-care (01) ==
PROVIDERS: PCP Nurse Practitioner Family; Visit Provider Nurse Practitioner Family
DX: Z00.00 Encounter for general adult medical examination without abnormal findings (principal); L40.9 Psoriasis, unspecified; Z98.52 Vasectomy status; Z11.3 Encounter for screening for infections with a predominantly sexual mode of transmission
CPT/HCPCS: 99395

== ENCOUNTER 2023-12-05 10:23 | Outpatient (AMB) | payer BC, SELFPAY ==
--- NOTE | 2023-12-05 10:30 | A.OFFVIS_ITS ---
Intake Intake Visit Reasons: Consultation to reverse vasectomy Intake Note: Patient is Present for Reverse Vasectomy Vasectomy was done by Dr. Alejandro on 08/18/2021 Urology Medication: None Antibiotic Allergies: None Blood Thinners: None Allergies codeine [CODEINE] Allergy (Mild, Verified 12/05/23 10:35) HIVES DIFFICULT BREATHING HPI HPI Comments History of Present Illness Details Elian is a pleasant male. He is here for the following urologic condition - anxiety about health - vasectomy reversal Prior vasectomy procedure 08/22 Has undergone status change Accompanied by new partner Vasectomy reversal discussed Given relatively close interval from prior procedure likelihood for success is high Discussed requirement of microscopic vasovasostomy Informed it is a smith pay procedure He would like to be notified of the Current anticipated amount Is considering procedure for next year [facility] Medical History Gonorrhea Anxiety with depression Asthma, mild intermittent, poorly controlled Surgical History History of vasectomy History of drainage of abscess Family History Father Hypertension Mother Gluten free diet Maternal Grandfather Myocardial infarction Other Mental health disorder Substance use disorder Social History Housing: House Alcohol intake: current Alcohol intake frequency: holidays/special occasions only Alcohol type: beer Patient Tobacco Use Status: Never used Tobacco e-Cigarette/Vaping Use: Never Used Second Hand Smoke Exposure: No service: No Current occupational status: employed 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 @ [employer] Current occupational exposures/hazards: No Cognitive needs: No Hearing needs: No Vision needs: Yes Review of Systems Const Denies chills and Denies fever(s) Card Reports no additional complaints and Denies syncope Resp Denies cough GI Denies abdominal pain and Denies heartburn Reports as per HPI and Denies change in libido Neuro Denies syncope Psych Denies change in libido Endo Denies change in libido Physical Exam Const General: cooperative, healthy appearing, comfortable and no acute distress Orientation/consciousness: patient oriented x3 HEENT Face and sinus: Yes normal facial exam Mouth: moist mucous membranes Neck Neck: Yes normal visual inspection, Yes full ROM and Yes trachea midline Chest Chest palpation & inspection: normal inspection of the chest Resp Effort & Inspection: normal respiratory effort, able to speak in complete sentences and no respiratory distress GI Inspection: Yes normal to inspection Back/Spine/Pelvis Cervical Spine: normal cervical lordosis Thoracic/Lumbar Spine: thoracic and lumbar spine normal to inspection Skin General skin exam: no rashes or lesions noted Neuro General: patient oriented x3, gait normal, tone normal and moves all extremities Extrem General: Yes normal to inspection and Yes capillary refill normal Assessment & Plan Assessment & Plan (1) Family planning services: Code(s): Z30. - Encounter for other general counseling and advice on contraception Plan He will call as needed Patient Instructions: Imaging studies, laboratory and physical exam results were discussed and reviewed in detail. No major barriers to patient understanding were identified. An opportunity to ask questions regarding the treatment plan was provided. All questions were answered. The patient expressed understanding and agreement with the above treatment plan. The patient is aware they should contact our office by phone for worsening of their current condition or the appearance of new urologic symptoms. Compliance is encouraged with any medications and followup testing that is ordered. It is a privilege to participate in the urologic care of your patient. If you have any questions or concerns regarding treatment for the above conditions, or other urologic issues, please do not hesitate to contact me. The office telephone contact is [phone]. This note is constructed using voice recognition software. While every effort has been made to ensure accuracy field cane scaler errors may have been included. Yours sincerely, Dr Tong Alejandro MD, JC [facility] - Urology Providers of Expert, Compassionate Care for the Genitourinary System Coding Level of Care Code Est Pt Level 4 (74091) Diagnoses Family planning services Z
== END 2023-12-05 11:11 | disposition home or self-care (01) ==
PROVIDERS: PCP Nurse Practitioner Family; Visit Provider Urology
DX: Z30.09 Encounter for other general counseling and advice on contraception (principal)
CPT/HCPCS: 99214

== ENCOUNTER → 2023-12-05 10:23 | Outpatient (BNVA) | payer BC, SELFPAY | PROVIDERS: PCP Nurse Practitioner Family; Visit Provider Urology ==

== ENCOUNTER 2025-07-16 14:50 | Outpatient (AMB) | payer OTHER, SELFPAY ==
--- NOTE | 2025-07-16 14:49 | A.OFFVIS_ITS ---
Intake Visit Reasons: Reverse vasectomy consult Intake Note: Patient is Present for Reverse Vasectomy Vasectomy was done by Dr. Alejandro on 08/18/2021 Urology Medication: None Antibiotic Allergies: None Blood Thinners: None Communications Representative Required: No Accompanied by: Self / Same As Patient Allergies codeine (CODEINE) Allergy (Mild, Verified 07/16/25 14:50) HIVES DIFFICULT BREATHING HPI Comments Details: Elian is a pleasant male. He is here for the following urologic condition - anxiety about health - vasectomy reversal Prior vasectomy procedure 08/22 Has undergone status change Previous discussion Would like to proceed Vasectomy reversal discussed Given relatively close interval from prior procedure likelihood for success is high Discussed requirement of microscopic vasovasostomy Informed it is a smith pay procedure He would like to be notified of the Current anticipated amount [facility] Medical History Gonorrhea Anxiety with depression Asthma, mild intermittent, poorly controlled Surgical History History of vasectomy History of drainage of abscess Family History Father Hypertension Mother Gluten free diet Maternal Grandfather Myocardial infarction Other Mental health disorder Substance use disorder Social History Housing: House Alcohol intake: current Alcohol intake frequency: holidays/special occasions only Alcohol type: beer Patient Tobacco Use Status: Never used Tobacco e-Cigarette/Vaping Use: Never Used Second Hand Smoke Exposure: No service: No Current occupational status: employed 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 @ [employer] Current occupational exposures/hazards: No Cognitive needs: No Hearing needs: No Vision needs: Yes Review of Systems Const Denies chills and Denies fever(s) Card Reports no additional complaints and Denies syncope Resp Denies cough GI Denies abdominal pain and Denies heartburn Reports as per HPI and Denies change in libido Neuro Denies syncope Psych Denies change in libido Endo Denies change in libido Physical Exam Const General: cooperative, healthy appearing, comfortable and no acute distress Orientation/consciousness: patient oriented x3 HEENT Face and sinus: Yes normal facial exam Mouth: moist mucous membranes Neck Neck: Yes normal visual inspection, Yes full ROM and Yes trachea midline Chest Chest palpation & inspection: normal inspection of the chest Resp Effort & Inspection: normal respiratory effort, able to speak in complete sentences and no respiratory distress GI Inspection: Yes normal to inspection Back/Spine/Pelvis Cervical Spine: normal cervical lordosis Thoracic/Lumbar Spine: thoracic and lumbar spine normal to inspection Skin General skin exam: no rashes or lesions noted Neuro General: patient oriented x3, gait normal, tone normal and moves all extremities Extrem General: Yes normal to inspection and Yes capillary refill normal Assessment & Plan Assessment & Plan (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 These include but are not limited to infection, bleeding, damage to local organs and tissues, need for further interventions. Anesthetic risks regarding cardiac arrhythmia, blood clots, and potential mortality were discussed. The patient understands the typical recovery time and the outpatient nature of the procedure. After consideration of these risks the patient gives full informed consent and they wish to move ahead with the procedure. While generally safe, the procedure carries some risks such as infection, bleeding, swelling (hematoma), and chronic pain in the scrotal area. There is also a possibility of scar tissue forming at the reconnection site, which can block sperm flow again. The success of the surgery depends heavily on factors like the surgeon?s skill, the length of time since the original vasectomy, and the patient?s overall health. Outcomes of vasectomy reversal vary widely. In many cases, sperm return to the s emen within a few months, but rates depend on both sperm quality and the fertility of the partner. Generally, if the vasectomy was performed less than 10 years earlier, success rates (sperm return) can reach 70?90%, while rates may range from 30?60%. However, reversals performed after a longer time or in cases of significant scarring or blockage may have reduced success. Even when sperm return to the semen, fertility is not guaranteed, and some couples may still require assisted reproductive techniques such as IVF. - vasectomy reversal Patient Instructions: This note is constructed using voice recognition software. While every effort has been made to ensure accuracy melt house drag operator errors may have been included. Imaging studies, laboratory and physical exam results were discussed and reviewed in detail. No major barriers to patient understanding were identified. An opportunity to ask questions regarding the treatment plan was provided. All questions were answered. The patient expressed understanding and agreement with the above treatment plan. The patient is aware they should contact our office by phone for worsening of their current condition or the appearance of new urologic symptoms. Compliance is encouraged with any medications and followup testing that is ordered. It is a privilege to participate in the urologic care of your patient. If you have any questions or concerns regarding treatment for the above conditions, or other urologic issues, please do not hesitate to contact me. The office telephone contact is [phone]. Sincerely, Dr Tong Alejandro MD, JC [facility] - Urology Compassionate Specialist Care for the Genitourinary System Coding Level of Care Code Est Pt Level 3 (30702) Diagnoses Male infertility N46.9
--- OUTSIDE RECORDS SUMMARY | 2025-07-16 18:33 | XMS_ITS | Encounter Summary ---
Author Organization [facility] Address [address] [place] [id number] Phone Care Team Providers Care Acct Exec Name Role Phone Roman Han MD Primary Care Provider [phone] Encounter Details Date Type Department Care Team (Late st Contact Info) Description 2017 Conversion Encounter [facility] [place] [address] [place] [address] Social History Tobacco Use Types Packs/Day Years Used Date Smoking Tobacco: Never Comments:Never smoker Sex and Gender Information Value Date Recorded Sex Assigned at Not on file Legal Sex Male 4:53 PM EDT Gender Identity Not on file Sexual Orientation Not on file documented as of this encounter Plan of Treatment Not on file documented as of this encounter Visit Diagnoses Not on filedocumented in this encounter Care Teams Acct Exec Relationship Specialty Start Date End Date Roman Han MD [address] [place] [address] PCP - General 05/12/17 11/30/22 documented as of this encounter
--- OUTSIDE RECORDS SUMMARY | 2025-07-16 18:33 | XMS_ITS | Encounter Summary ---
Author Organization [facility] Address [address] [place] [id number] Phone Care Team Providers Care Jewel Sorter Name Role Phone Roman Han MD Primary Care Provider [phone] Encounter Details Date Type Department Care Team (Late st Contact Info) Description 12/09/2016 Documentation [facility] [address] [place] [address] Family Medicine, Physician [address] [place], [place] [id number] Social History Tobacco Use Types Packs/Day Years [...] on filedocumented in this encounter Care Teams Jewel Sorter Relationship Specialty Start Date End Date Roman Han MD [address] [place] [address] [place]IO [place] [address] PCP - General 05/12/17 11/30/22 documented as of this encounter
--- OUTSIDE RECORDS SUMMARY | 2025-07-16 18:33 | XMS_ITS | Encounter Summary ---
Author Organization [facility] Address [address] [place] [id number] Phone Care Team Providers Care Staff Pharmacist Hospital Name Role Phone Roman Han MD Primary Care Provider [phone] Encounter Details Date Type Department Care Team (Late st Contact Info) Description 09/21/2015 Documentation EM Family Medicine [address] [place] [address] Family Medicine, Physician [address] [place], [place] [id number] Social History Tobacco Use Types Packs/Day Years [...] on filedocumented in this encounter Care Teams Staff Pharmacist Hospital Relationship Specialty Start Date End Date Roman Han MD [address] [place] [address] REFUGIO Keenan [id number] PCP - General 05/12/17 11/30/22 documented as of this encounter
--- OUTSIDE RECORDS SUMMARY | 2025-07-16 18:33 | XMS_ITS | Clinical Summary ---
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 Role Phone Unavailable Primary Care Provider Unavailabl e Immunizations Immunization Administration Dates Next Due DTP 05/19/1998, 6,1994,09/22,1994 H1N1 08/05/2009 HPV, Quadrivalent 02/05/2013,12/08/2011,08/03/20 10 Hep A, Adult 07/07/2014 Hep B, ped/adol 1994,1994,1994 Hib (PRP-T) 10/21/1995, 5,1994,07/27 IPV 05/19/1998, 6,1994,07/27 Influenza Split 08/16/2012,12/08/2011,08/03/2010 Influenza, injectable, quadr ivalent, preservative free 07/07/2014 Influenza, injectable, trivalent 013,07/01/2009,08/18/2008,07/26,08/09/2004 MMR 05/19/1998,10/21/1995 Meningococcal Conj (Menactra) MCV4P 08/09/2007 Tdap 06/30/2006 Varicella 12/18/2008,09/23/2005 Family History Relation Name Status Comments Father Alive Father: Depress ion / Hypertension, Elevated cholesterol Mother Mother: Celiac disease, Allergic rhinitis, Celiac Dis Other Family history of Strabismus/amblyopia, Family history of Seizure disorder, Family history of Obesity, Family history of Sudden /NM under age 55, Family history of Migraines, Family history of Asthma, Family history of Diabetes mellitus, Family history of Autism Social History Tobacco Use Types Packs/Day Years Used Date Smoking Tobacco: Never Comments:Never smoker Sex and Gender Information Value Date Recorded Sex Assigned at Not on file Legal Sex Male 4:53 PM EDT Gender Identity Not on file Sexual Orientation Not on file Last Filed Vital Signs Vital Sign Reading Time Taken Comments Blood Pressure 130/78 07/07/2014 12:00 AM EDT Pulse 67 07/07/2014 12:00 AM EDT Temperature 36.5 C (97.7 F) 09/29/2014 12:00 AM EST Respiratory Rate - - Oxygen Saturation - - Inhaled Oxygen Concentration - - Weight 89.1 kg (196 lb 8 oz) 09/29/2014 12:00 AM EST Height 178.8 cm (5' 10.4 ) 07/07/2014 12:00 AM E DT Body Mass Index 27.87 07/07/2014 12:00 AM EDT Plan of Treatment Health Maintenance Due Date Last Done Comments DTaP,Tdap,and Td Vaccines (7 - Td or Tdap) 06/30/2016 06/30/2006, 05/19/1998, 11/28/1995, Additional history exists Influenza Vaccines (#1) 2025 07/07/20 14, 08/13/2013, 08/16/2012, Additional history exists COVID-19 Vaccine ( season) 2025 Hepatitis B Vaccines Completed 1994, 1994, 1994 HIB Vaccines Completed 10/21/1995, 11/30, 1994, Additional history exists IPV Vaccines Completed 05/19/1998, 10/03, 1994, Additional history exists MMR Vaccines Completed 05/19/1998, 10/21/1995 Meningococcal Vaccine Aged Out 08/09/2007 No bridger francesco eligible based on patient's age to complete this topic Varicella Vaccines Completed 12/18/2008, 09/23/2005 HPV Vaccines Completed 02/05/2013, 05/2012, 08/03/2010 Hepatitis A Vaccines Aged Out 07/07/2014 No long er eligible based on patient's age to complete this topic Men B Vaccine Aged Out No longer elig ible based on patient's age to complete this topic Pneumococcal Vaccine Aged Out No long er eligible based on patient's age to complete this topic
--- OUTSIDE RECORDS SUMMARY | 2025-07-16 18:33 | XMS_ITS | Encounter Summary ---
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 Name Role Phone Roman Han MD Primary Care Provider [phone] Encounter Details Date Type Department Care Team (Late st Contact Info) Description 12/09/2011 Documentation EM Family Medicine [address] [place], [place] [id number] Family Medicine, Physician [address] [place], [place] [address] Social History Tobacco Use Types Packs/Day Years Used Date Smoking Tobacco: Never Assessed Sex and Gender Information Value Date Recorded Sex Assigned at Not on file Legal Sex Male 4:53 PM EDT Gender Identity Not on file Sexual Orientation Not on file documented as of this encounter Plan of Treatment Not on file documented as of this encounter Visit Diagnoses Not on filedocumented in this encounter Care Teams Pipe Washer Relationship Specialty Start Date End Date Roman Han MD [address] [place] [address] REFUGIO Keenan [id number] PCP - General 05/12/17 11/30/22 documented as of this encounter
== END 2025-07-16 16:05 | disposition home or self-care (01) ==
LOC: HO.HUSH 14:50
PROVIDERS: PCP Nurse Practitioner Family; Visit Provider Urology
DX: N46.9 Male infertility, unspecified (principal)
CPT/HCPCS: 99213

== ENCOUNTER 2025-09-04 11:09 | Outpatient (AMB) | payer OTHER, SELFPAY ==
--- NOTE | 2025-09-04 11:13 | MHC.PC.OV ---
Vital Signs 09/04/25 11:14 Height 5 ft 11 in Weight 269 lb BMI 37.5 BP 128/76 Blood Pressure Location Rt brachial Position Sitting Respiration 14 Pulse 81 Pulse Source Pulse Oximeter Temp 98.1 F Temp Source Oral Pulse Oximetry (%) 98 Oxygen Delivery Method Room Air Intake Visit Reasons: SHERON/Cosme, LYDIA Intake Note: New patient visit Web Design Instructor Required: No Allergies codeine (CODEINE) Allergy (Mild, Verified 09/04/25 11:15) HIVES DIFFICULT BREATHING Medication List - Last Reconciled 09/04/25 by Carolin Murguia PA-C albuterol sulfate 90 mcg/actuation (Ventolin HFA) 2 puffs inhalation 6XD PRN beclomethasone dipropionate 40 mcg/actuation (Qvar RediHaler) 1 inh inhalation BID loratadine (Claritin) 10 mg PO DAILY Tobacco use date assessed: 09/04/25 Dental Screening Dental Screen Date: 09/04/25 Did you have a dental visit in the last 12 months?: Yes Did you have a dental problem in the last 6 months where you did not have access to dental care?: No Was dental information given to patient?: Patient has dentist HPI SHERON/Cosme, LYDIA HPI Details Patient is a 30-year-old male who presents today to [facility] care. He is transferring internally. He reports a significant past medical history of asthma, anxiety and depression. Pulm: has had to use rescue inhalers multiple times a week. He states it is exercise induced, illness induce, weather induced. He used to take an inhaled steroid which was helpful. He is interested in trying something like this again. He also would like to see Allergy and immunology to see if he can find out what he is reactive to. He has never been hospitalized or intubated for asthma Psych: He states that he no longer really struggles with depression but does experience generalized anxiety and irritability. 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 He states that his job is a lot of stress and it is causing him to become irritable and he feels this in his personal life as well. He is interested in trying something. He states in the past he tried a medication but can not recall what the name of it was. He states that he did not take it for long enough to know if it was effective. No SI/HI. Uro: scheduled for vasectomy reversal in October Derm: Following with [facility] for psoriasis. Currently on Skyrizi. In the past was on Humira. Fam Hx: Maternal grandfather 57 [place], maternal uncle etoh, Paternal grandmother heart disease, [facility] Medical History (Updated 09/04/25 @ 11:37 by Carolin Murguia PA-C) Asthma, mild intermittent, poorly controlled Gonorrhea Anxiety with depression Surgical History History of vasectomy History of drainage of abscess Family History Father Hypertension Mother Gluten free diet Maternal Grandfather Myocardial infarction Other Mental health disorder Substance use disorder Social History (Updated 09/04/25 @ 11:17 by Kaila Romero CMA) Housing: House Alcohol intake: current Alcohol intake frequency: holidays/special occasions only Alcohol type: beer Patient Tobacco Use Status: Never used Tobacco e-Cigarette/Vaping Use: Never Used Second Hand Smoke Exposure: No service: No Current occupational status: employed 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 1. Little interest or pleasure in doing things: more than half the days 2. Feeling down, depressed, or hopeless: more than half the days 3. Trouble falling or staying asleep, or sleeping too much: not at all 4. Feeling tired or having little energy: more than half the days 5. Poor appetite or overeating: several days 6. Feeling bad about yourself - or that you are a failure or have let yourself or your family down: not at all 7. Trouble concentrating on things, such as reading the newspaper or watching television: several days 8. Moving or speaking so slowly that other people could have noticed. Or the opposite - being so fidgety or restless that you have been moving around a lot more than usual: not at all 9. Thoughts that you would be better off or of hurting yourself in some way: not at all Total score: 8 Depression Screening Interpretation: Positive Depression Screening Done: Yes 02616 - PHQ-9 Billing: Yes Source: Developed by Drs. Saran Jean, Sarah Chapa, Tristen Blanton and colleagues, with an educational francisco javier from [employer]. Thrive Questionnaire Date Thrive assessed: 09/04/25 I am a: Patient What is your living situation today?: I have a steady place to live Within the past 12 months, did the food you bought not last and you didn't have the money to get more?: Never true Within the past 12 months, did you worry whether your food would run out before you got money to buy more?: Never true Do you have trouble paying for medicines?: No Do you have trouble getting transportation to medical appointments?: No Do you have trouble paying your heating and electricity bill?: No Do you have trouble taking care of your child, family member or friend?: No Do you have trouble with day-to-day activities such as bathing, preparing meals, shopping, managing finances, etc.?: No Are you currently unemployed and looking for a job?: No Are you interested in more education?: No Please select the resources that you would like help with: None Currently or been in a relationship where the following occur: No concerns reported THRIVE Score: 0 AUDIT C Alcohol Use Questionnaire (AUDIT-C) 1. How often do you have a drink containing alcohol?: Monthly or less 2. How many drinks containing alcohol do you have on a typical day when you are drinking?: 1 or 2 3. How often do you have six or more drinks on one occasion?: Never Total Score: 1 AWILDA-7 AMB Questionnaire AWILDA-7 Date AWILDA - 7 assessed: 09/04/25 Feeling nervous, anxious, or on edge: 3 = Nearly every day Not being able to stop or control worryin = Nearly every day Worrying too much about different things: 3 = Nearly every day Trouble relaxin = More than half the days Being so restless that it is hard to sit still: 0 = Not at all Becoming easily annoyed or irritable: 3 = Nearly every day Feeling afraid as if something awful might happen: 0 = Not at all Total AWILDA-7 score (0-4 normal; 5-9 mild; 10-14 moderate; 15-21 severe): 14 Source: Developed by Sarah Tyler B.W. Eduard, Tristen Blanton and colleagues, with an educational francisco javier from [employer]. AWILDA-7 Assessment Billing AWILDA-7 Assessment Tool: AWILDA-7 Assessment 80787 Physical exam (Primary Care) Vital Signs: Last Vital Signs Temp 98.1 F 09/04/25 11:14 Pulse 81 09/04/25 11:14 Resp 14 09/04/25 11:14 BP 128/76 09/04/25 11:14 Pulse Ox 98 09/04/25 11:14 Oxygen Delivery Method Room Air 09/04/25 11:14 BMI result Body Mass Index 37.5 Tobacco/Smoking Status: Tobacco use Status Tobacco use date assessed 09/04/25 09/04/25 11:22 Patient Tobacco Use Status Never used Tobacco 09/04/25 11:22 e-Cigarette/Vaping Use Never Used 09/04/25 11:22 PHQ-9: PHQ-9 Score PHQ-9: Total score 8 09/04/25 11:22 Depression Screening Interpretation: Positive Thrive Assessment: Date of Thrive Assessment Date Thrive assessed 09/04/25 09/04/25 11:22 Currently or been in a relationship where the following occur: No concerns reported Const Orientation/consciousness: patient oriented x3 HENMT Ears: hearing grossly normal bilaterally and TM's normal bilaterally General nose exam: No nasal polyps present Face and sinus: Yes sinuses nontender Mouth: Normal oral and palatal mucosa present Eyes Pupils: Equal, round and reactive pupils present EOM: EOMs intact bilaterally Neck Neck: Yes full ROM and Yes no lymphadenopathy Thyroid: Thyroid normal Chest Chest palpation & inspection: normal inspection of the chest Resp Auscultation: clear to auscultation bilaterally Cardio Rate: regular rate Rhythm: regular rhythm Heart sounds: S1 normal heart sound present and S2 normal heart sound present Peripheral pulses: Peripheral pulses 2+ throughout GI Other: Soft, nontender Auscultation: normal bowel sounds Rectal Exam - Male: Yes deferred General: Yes no CVA tenderness Back/Spine/Pelvis Other: Nontender Back: no CVA tenderness Skin General skin exam: no rashes or lesions noted Neuro General: patient oriented x3, gait normal, CN's II-XI intact bilaterally and deep tendon reflexes 2+ bilaterally Cranial nerves: Yes Equal, round and reactive pupils present Motor exam (neuro): 5/5 motor strength present throughout Sensory Exam: double simultaneous stimulation for sensation normal Coordination: [id number] test normal and Romberg test negative Extrem General: Yes normal to inspection and Yes full ROM Psych Affect: normal affect Attitude: cooperative Thought process: Normal thought process present Thought content: Normal thought content present Insight: Good insight present (Psych) Judgement: Good judgement present (Psych) Coding Level of Care Code Est Pt Level 3 (40452) Est Pt Prev Care 18-39y(12126) Diagnoses Routine general medical examination at a health care facility Z00.00 Asthma, mild intermittent, poorly controlled J45.20 Psoriasis L40.9 History of vasectomy Z98.52 Anxiety with depression F41.8 Additional Codes AWILDA-7 Assessment Billing - AWILDA-7 Assessment Tool: AWILDA-7 Assessment 33400 ([id number]) PHQ-9 - 19246 - PHQ-9 Billing: Yes ([id number]) Assessment & Plan Assessment & Plan (1) Routine general medical examination at a health care facility: Code(s): Z00.00 - Encounter for general adult medical examination without abnormal findings Plan: reviewed labs ordered (2) Asthma, mild intermittent, poorly controlled: Code(s): J45.20 - Mild intermittent asthma, uncomplicated Category: Medical Plan: We will add QVAR. We will let me know if his insurance does not cover this. Advised to rinse her mouth out with each use Albuterol refilled Referral to Allergy and immunology (3) Psoriasis: Code(s): L40.9 - Psoriasis, unspecified Category: Medical Plan: Managed by [facility] and doing well (4) History of vasectomy: Code(s): Z98.52 - Vasectomy status Category: Surgical Plan: Following with urology (5) Anxiety with depression: Code(s): F41.8 - Other specified anxiety disorders Category: Medical Plan: We will start Lexapro. Discussed risks and benefits and adverse effects of this medications such as GI upset, increased risk of SI/HI. We will do a short term follow up in 4-6 weeks to be reassessed. Sooner if needed Referral to behavioral health Labs ordered Orders: Orders Comprehensive [place]. Panel Fast Today F41.8 - Other specified anxiety disorders, J45.20 - Mild intermittent asthma, uncomplicated, L40.9 - Psoriasis, unspecified Lipid Panel Today F41.8 - Other specified anxiety disorders, J45.20 - Mild intermittent asthma, uncomplicated, L40.9 - Psoriasis, unspecified TSH reflex Free T4 Today F41.8 - Other specified anxiety disorders, J45.20 - Mild intermittent asthma, uncomplicated, L40.9 - Psoriasis, unspecified UA CC w/rflx Micro + Cult Today F41.8 - Other specified anxiety disorders, J45.20 - Mild intermittent asthma, uncomplicated, L40.9 - Psoriasis, unspecified, R30.0 - Dysuria Complete Blood Count Auto Diff Today F41.8 - Other specified anxiety disorders, J45.20 - Mild intermittent asthma, uncomplicated, L40.9 - Psoriasis, unspecified Vitamin B12 and Folate Today F41.8 - Other specified anxiety disorders, J45.20 - Mild intermittent asthma, uncomplicated, L40.9 - Psoriasis, unspecified Microalbumin, Random (w Creat) Today F41.8 - Other specified anxiety disorders, J45.20 - Mild intermittent asthma, uncomplicated, L40.9 - Psoriasis, unspecified Referrals Allergy & Immunology Referral J30.2 - Other seasonal allergic rhinitis, J45.20 - Mild intermittent asthma, uncomplicated Medications: New beclomethasone dipropionate 40 mcg/actuation (Qvar RediHaler) administer with spacer 1 inh inhalation BID 10.6 grams 3RF albuterol sulfate 90 mcg/actuation (Ventolin HFA) 2 puffs inhalation 6XD PRN 8.5 grams 1RF shortness of breath or wheezing escitalopram oxalate (Lexapro) 5 mg PO DAILY 90 tabs 0RF Patient Instructions: [phone]?[id number]
[2025-09-04 11:14] VITALS: BP 128/76; PULSE 81; RESP 14; TEMP 36.7; O2SAT 98; BMI 37.5
== END 2025-09-04 12:02 | disposition home or self-care (01) ==
LOC: HO.HMCFM 11:10
PROVIDERS: PCP Physician Assistant; Visit Provider Physician Assistant
DX: Z00.00 Encounter for general adult medical examination without abnormal findings (principal); J45.20 Mild intermittent asthma, uncomplicated; L40.9 Psoriasis, unspecified; F41.8 Other specified anxiety disorders; Z98.52 Vasectomy status

== ENCOUNTER → 2025-09-04 11:09 | Outpatient (BNVA) | payer OTHER, SELFPAY | PROVIDERS: PCP Nurse Practitioner Family; Visit Provider Physician Assistant | DX: Z00.00 Encounter for general adult medical examination without abnormal findings (principal); J45.20 Mild intermittent asthma, uncomplicated; L40.9 Psoriasis, unspecified; F41.8 Other specified anxiety disorders; Z98.52 Vasectomy status | CPT/HCPCS: 96127 ==